=== PATIENT | female | born 1990 | race Caucasian/White ===

== ENCOUNTER 2020-04-26 18:03 | Emergency (ER) | payer SELFPAY ==
[~2020-04-26 18:03] MED LIST: Iopamidol 370 76% 100 ML VIAL ONE
[2020-04-26] MEDS ORDERED: Ondansetron PF 4 MG/2 ML Vial ONE (18:46)
[2020-04-26] MEDS ORDERED: Morphine 4 MG/ML VIAL ONE (18:46)
[2020-04-26 19:07] LABS: #Eosinphils 0.1 thou/uL (0.0-0.7); BHCG - Serum Negative (NEGATIVE); Pregs Control Background? CLEAR/WHITE (CLR/WHITE); Pregs Control Bar Appear? YES (CONTROL BAR)
[2020-04-26 19:16] LABS: ALT (SGPT) 14 U/L (8-55); AST (SGOT) 12 U/L (5-34); Alkaline Phosphatase 57 U/L (40-110); Anion Gap 13 mmol/L (10-20); BUN (Urea Nitrogen) 10 mg/dL (7.0-18.7); Bilirubin, Total 0.3 mg/dL (0.2-1.2); Calc. Creatinine Clearance 0 mL/min (70-130); Calcium 8.5 mg/dL (7.8-10.44); Carbon Dioxide 25 mmol/L (22-29); Chloride 107 mmol/L (98-107); Globulin 2.7 g/dL (2.4-3.5); Glucose 89 mg/dL (70-105); Lipase 10 U/L (8-78); Potassium 3.8 mmol/L (3.5-5.1); Protein, Total 6.7 g/dL (6.0-8.3); Sodium 141 mmol/L (136-145)
[2020-04-26 19:42] LABS: #Lymphocytes 2.4 thou/uL (1.20-3.40); #Monocytes 0.4 thou/uL (0.11-0.59); #Neutrophils 3.5 thou/uL (1.40-6.50); %Basophils 0.6 % (0.0-1.0); %Eosinophils 1.8 % (0.0-10.0); %Lymphocytes 36.3 % (21.0-51.0); %Monocytes 6.3 % (0.0-10.0); %Neutrophils 54.9 % (42.0-75.0); Hemoglobin 12.3 g/dL (12.0-16.0); Mean Corpuscular HGB CONC 32.3 g/dL (32.0-36.0); Mean Corpuscular Hemoglobin 28.7 pg (27.0-31.0); Mean Corpuscular Volume 88.8 fL (78.0-98.0); Mean Platelet Volume 8.6 fL (7.4-10.4); Platelet Count 205 thou/uL (130-400); RBC Distribution Width 11.3 % (11.5-14.5); Red Blood Cell (RBC) Count 4.29 mill/uL (4.20-5.40); White Blood Cell (WBC) Count 6.5 thou/uL (4.8-10.8)
[2020-04-26 19:52] LABS: Bilirubin Negative (Negative); Blood, Urine Negative (Negative); Clarity Cloudy (Clear); Glucose, Urine (Dipstick) Negative (Negative); Ketone, Urine Negative (Negative); Leukocyte Negative (Negative); Nitrite Negative (Negative); Protein, Urine (Dipstick) Negative (Neg-Trace); Specific Gravity, Urine 1.025 (1.005-1.030); Urobilinogen 0.2 mg/dL (Less than 2); pH, Urine 6.5 (5.0-9.0)
[2020-04-26] MEDS ORDERED: Ketorolac Tromethamine 30 MG/ML VIAL ONE (20:15)
--- NOTE | 2020-04-27 07:39 | CT ---
CT ABDOMEN AND PELVIS WITH CONTRAST: Date: 04/26/[address] of the abdomen and pelvis was done for evaluation of mid abdominal pain. The lung bases are clear. The liver has a small hypodense area in the dome of the right lobe with a small amount of peripheral enhancement. It measures about 2.2 cm wide and is highly likely to be a hemangioma. I am not convince d of the need for further follow-up at the moment. The spleen, pancreas, gallbladder, adrenal glands, kidneys, and abdominal aorta appear normal. No gal lstones were seen in the gallbladder and no stones were seen in the kidneys. No hydronephrosis. The bowel is nondistended. There is no bowel wall thickening or inflammatory change around it. The ap pendix was identified and appears normal. No free air or free fluid was present. CT of the pelvis shows a slightly increased amount of fluid in the endometrial cavity. This should be correlated with the point she is at in her cycle. Ultrasound might be helpful. No adnexal masses see n. There is trace fluid in the cul-de-sac, which could be physiologic. There are no acute bony findings. IMPRESSION: 1. No acute abdominal or pelvic findings to explain pain. 2. Probable small hemangioma in the dome of the liver. 3. Slightly more fluid than usual in endometrial cavity, but still potentially within normal limits. Trace of fluid in the cul-de-sac. 4. Normal appendix. Preliminary report called to Dr. Gaspar at 2005 hours on 04/26/2020. CODE CR. POS: HOME
== END 2020-04-26 20:25 | disposition home or self-care (01) ==
LOC: BURERS 18:03
DX: R10.13 Epigastric pain (principal); R11.2 Nausea with vomiting, unspecified; F17.210 Nicotine dependence, cigarettes, uncomplicated
CPT/HCPCS: 74177; 80053; 81003; 83690; 84703; 85025; 96374; 96375; J1885; J2270; J2405; Q9967

== ENCOUNTER 2020-05-22 08:02 | Emergency (ER) | payer SELFPAY ==
[2020-05-23 01:37] LABS: SARS-CoV-2 PCR by NAA DETECTED (NotDetected)
== END 2020-05-22 08:58 | disposition home or self-care (01) ==
LOC: BURERS 08:02
DX: U07.1 COVID-19 (principal); F17.210 Nicotine dependence, cigarettes, uncomplicated
CPT/HCPCS: 87635; 99283; U0003; U0005

== ENCOUNTER 2023-10-11 15:16 | Emergency (ER) | payer SELFPAY ==
[2023-10-11] MEDS ORDERED: Clindamycin 150 MG CAP ONE (15:46)
== END 2023-10-11 15:54 | disposition home or self-care (01) ==
LOC: BURERS 15:16
DX: N61.1 Abscess of the breast and nipple (principal); F17.210 Nicotine dependence, cigarettes, uncomplicated
CPT/HCPCS: 99283

== ENCOUNTER 2024-12-15 15:01 | Emergency (ER) | payer SELFPAY ==
[2024-12-15] MEDS ORDERED: HYDROcodone/Acetaminophen 10/325 mg Tablet ONE (15:47)
== END 2024-12-15 16:46 | disposition home or self-care (01) ==
LOC: BURERS 15:01
DX: S43.401A Unspecified sprain of right shoulder joint, initial encounter (principal); F17.210 Nicotine dependence, cigarettes, uncomplicated; W01.0XXA Fall on same level from slipping, tripping and stumbling without subsequent striking against object, initial encounter
CPT/HCPCS: 71250